=== PATIENT | female | born 1990 | race Hispanic/Latino ===

== ENCOUNTER → 2017-11-30 | Outpatient (REF) ==
[2017-12-03 00:08] LABS: QUANTIFERON GOLD TB Negative (Negative); TB Test (QFT) Antigen 0.11 IU/mL (.); TB Test (QFT) Antigen Minus Ni <0.01 IU/mL (.); TB Test (QFT) Mitogen >10.00 IU/mL (.); TB Test (QFT) Nil 0.12 IU/mL (.)
== END ==
LOC: M LAB 13:37
DX: Z00.00 Encounter for general adult medical examination without abnormal findings (principal)